=== PATIENT | female | born 2005 | race Caucasian/White ===

== ENCOUNTER 2024-02-06 05:37 | Emergency (ER) | payer OTHER ==
[~2024-02-06] VITALS: Ht 172.7 cm; Wt 47.2 kg
[2024-02-06 05:56] VITALS: BP_SYST 109; PULSE 82; RESP 24; TEMP 96.3; O2SAT 99
[2024-02-06 06:23] LABS: BILIRUBIN,URINE NEGATIVE (NEGATIVE); BLOOD, URINE NEGATIVE (NEGATIVE); COLOR,URINE YELLOW (YELLOW); GLUCOSE,URINE NEGATIVE (NEGATIVE); KETONES,URINE TRACE (NEGATIVE); LEUKOCYTE ESTERASE ,URINE NEGATIVE (NEGATIVE); NITRITE, URINE NEGATIVE (NEGATIVE); PH,URINE 8.5 (5.0-8.0); PROTEIN URINE 3+ (NEGATIVE)
[2024-02-06 06:36] LABS: HCG,QUAL RESULT NEGATIVE (NEGATIVE)
[2024-02-06 06:39] LABS: CLARITY/URINE HAZY (CLEAR)
[2024-02-06] MEDS: ONDANSETRON 4 MG ODT TAB PO ONE (06:39)
[2024-02-06 06:40] LABS: BACTERIA,URINE None Seen /HPF (None Seen); RBC,URINE 0-3 /HPF (0-3); WBC,URINE 0-3 /HPF (0-3)
[2024-02-06] MEDS: KETOROLAC TROMETHAMINE 30 MG VIAL IM ONE (06:41)
[2024-02-06] MEDS ORDERED: ONDA-8 TL (07:09)
[2024-02-06 07:27] VITALS: BP_SYST 113; PULSE 74; RESP 24; TEMP 98.3; O2SAT 100
[2024-02-07] MEDS ORDERED: IBUP-1969 PO (17:20)
== END 2024-02-06 07:25 | disposition home or self-care (01) ==
LOC: SED 05:37
DX: R11.10 Vomiting, unspecified (principal); R10.84 Generalized abdominal pain; Z79.899 Other long term (current) drug therapy
CPT/HCPCS: 99283; 81001; 84703; 81025; 96372; Q0162; J1885; 81000; 81015

== ENCOUNTER 2024-02-07 14:29 | Emergency (ER) | payer OTHER ==
[~2024-02-07] VITALS: Ht 172.7 cm; Wt 63.5 kg
[~2024-02-07 14:29] MED LIST: ONDA-8 TL
[2024-02-07 14:42] VITALS: BP_SYST 108; PULSE 67; RESP 20; TEMP 98.3; O2SAT 98
[2024-02-07 15:38] LABS: BILIRUBIN,URINE NEGATIVE (NEGATIVE); BLOOD, URINE NEGATIVE (NEGATIVE); CLARITY/URINE CLEAR (CLEAR); COLOR,URINE YELLOW (YELLOW); GLUCOSE,URINE NEGATIVE (NEGATIVE); KETONES,URINE TRACE (NEGATIVE); LEUKOCYTE ESTERASE ,URINE NEGATIVE (NEGATIVE); NITRITE, URINE NEGATIVE (NEGATIVE); PROTEIN URINE NEGATIVE (NEGATIVE); UROBILINOGEN,URINE 0.2 (0.2-1.0)
[2024-02-07 15:45] LABS: BASOPHILS # (AUTO) 0.1 K/uL (0.0-0.2); BASOPHILS % (AUTO) 0.9 % (0.0-2.0); EOSINOPHILS # (AUTO) 0.1 K/uL (0.0-0.4); EOSINOPHILS % (AUTO) 1.4 % (0.0-4.0); HEMATOCRIT 38.7 % (36-48); HEMOGLOBIN 13.6 g/dL (12.0-16.0); LYMPHOCYTES # (AUTO) 1.7 K/uL (1.0-5.5); LYMPHOCYTES % (AUTO) 27.3 % (20.5-51.5); MEAN CORPUSCULAR HEMOGLOBIN 32 pg (27-31); MEAN CORPUSCULAR HGB CONC 35 % (32-36); MEAN CORPUSCULAR VOLUME 90 fL (79.0-98.0); MONOCYTES # (AUTO) 0.6 K/uL (0.0-1.0); MONOCYTES % (AUTO) 8.8 % (1.7-9.3); NEUTROPHILS # (AUTO) 3.9 K/uL (1.8-7.7); NEUTROPHILS % (AUTO) 61.6 % (40.0-70.0); PLATELET COUNT (AUTO) 173 K/uL (130-430); RED BLOOD CELL COUNT(AUTO) 4.31 MIL/uL (4.2-6.2); RED CELL DISTRIBUTION WIDTH 14.1 % (9.0-15.0); WHITE BLOOD COUNT (AUTO) 6.3 K/uL (4.5-11.0)
[2024-02-07 15:47] LABS: CALCIUM 8.5 mg/dL (8.4-11.0); CREATININE 0.88 mg/dL (0.55-1.30); POTASSIUM 3.8 mmol/L (3.5-5.1)
[2024-02-07] MEDS ORDERED: IBUP-1969 PO (17:20)
[2024-02-07 17:30] VITALS: BP_SYST 108; PULSE 67; RESP 20; TEMP 98.3; O2SAT 98
== END 2024-02-07 17:57 | disposition home or self-care (01) ==
LOC: SED 14:29
DX: R10.31 Right lower quadrant pain (principal); R20.2 Paresthesia of skin; R10.2 Pelvic and perineal pain; Z79.899 Other long term (current) drug therapy
CPT/HCPCS: 36415; 76856; 80048; 81001; 81003; 81025; 85025; 99284

== ENCOUNTER 2024-04-10 06:24 | Emergency (ER) | payer OTHER ==
[~2024-04-10] VITALS: Ht 170.2 cm; Wt 59.0 kg
[~2024-04-10 06:24] MED LIST changes: +IBUP-1969 PO
[2024-04-10 06:32] VITALS: BP_SYST 123; PULSE 71; RESP 16; TEMP 98.3; O2SAT 98
[2024-04-10 07:00] VITALS: BP_SYST 118; PULSE 74; RESP 18; TEMP 98; O2SAT 100
[2024-04-10] MEDS ORDERED: DIPHTH,PERTUSS(ACELL),TET VAC 0.5 ML VIAL (Tdap) I.M. ONE (07:29)
[2024-04-10] MEDS: DIPHTH,PERTUSS(ACELL),TET VAC 0.5 ML VIAL (Tdap) I.M. ONE (07:52)
[2024-04-10] MEDS: BACITRACIN 1 GM OINT TP ONE (07:55)
== END 2024-04-10 07:56 | disposition home or self-care (01) ==
LOC: SED 06:24
DX: S51.812A Laceration without foreign body of left forearm, initial encounter (principal); Z23 Encounter for immunization; Z79.899 Other long term (current) drug therapy; W23.0XXA Caught, crushed, jammed, or pinched between moving objects, initial encounter; Y93.89 Activity, other specified; Y92.89 Other specified places as the place of occurrence of the external cause; Y99.8 Other external cause status
CPT/HCPCS: 90715; 99283